=== PATIENT | female | born 1995 | race Caucasian/White ===

== ENCOUNTER 2018-05-21 16:00 | Inpatient (IN) | payer BC, OTHER ==
[2018-05-24] MEDS ORDERED: METHYLERGONOVINE 0.2 MG/ML 1 ML AMP IM PRN (00:36)
[2018-05-24] MEDS ORDERED: TERBUTALINE 1 MG/ML VIAL SQ PRN (00:36)
[2018-05-24] MEDS ORDERED: CARBOPROST TROMETHAMINE 250 MCG/ML 1 ML AMP IM PRN (00:36)
[2018-05-24] MEDS ORDERED: OXYTOCIN 10 UNIT/ML 1 ML VIAL IM PRN (00:36)
[2018-05-24] MEDS ORDERED: LIDOCAINE 1% INJ 10MG/ML (20 ML MDV) SQ PRN (00:36)
[2018-05-24] MEDS: LACTATED RINGERS 1,000 ML IV SCH ×2 (00:37→03:37)
[2018-05-24] MEDS ORDERED: OXYTOCIN 20 UNITS/1000 ML NS 1,000 ML IV SCH ×2 (00:45→09:15)
[2018-05-24] MEDS ORDERED: BUTORPHANOL 1 MG/ML 1 ML VIAL IV PRN (00:53)
[2018-05-24 00:54] LABS: Basophils % (A) 0 %; Eosinophils # (A) 0.1 k/uL (0-0.7); Eosinophils % (A) 1 %; HCT 35.2 % (34.0-46.0); Lymphocytes # (A) 2.4 k/uL (1.0-4.8); Lymphocytes % (A) 26 %; MCV 82.5 fL (80.0-100.0); Mean Platelet Volume 6.7; Monocytes # (A) 0.7 k/uL (0-1.0); Monocytes % (A) 7 %; Neutrophils % (A) 64 %; Platelet Count 241 k/uL (150-450); RBC 4.27 m/uL (3.80-5.40); RDW 13.6 % (11.5-15.5); WBC 9.3 k/uL (3.8-10.6)
[2018-05-24 01:33] VITALS: BMI 30.2
[2018-05-24] MEDS ORDERED: fentaNYL (PF) 50 MCG/ML 5 ML AMP ONE (03:38)
[2018-05-24] MEDS ORDERED: ROPIVACAINE 5MG/ML 20ML VIAL ONE (03:38)
[2018-05-24] MEDS ORDERED: SODIUM CHLORIDE 0.9% 100 ML BAG ONE (03:38)
[2018-05-24] MEDS ORDERED: ROPIVACAINE 100 MG, fentaNYL (PF) 200 MCG in SODIUM CHLORIDE 0.9% 76 ML EPIDURAL ONE (05:44)
[2018-05-24] MEDS ORDERED: diphenhydrAMINE 50 MG CAP PO PRN (09:05)
[2018-05-24] MEDS ORDERED: HYDROCORTISONE 2.5% RECTAL CREAM 30 GM TUBE RECTAL PRN (09:05)
[2018-05-24] MEDS ORDERED: SIMETHICONE 80 MG CHEWABLE PO PRN (09:05)
[2018-05-24] MEDS ORDERED: diphenhydrAMINE 50 MG/ML 1 ML VIAL IVP PRN ×2 (09:05)
[2018-05-24] MEDS ORDERED: ZOLPIDEM 5 MG TAB PO PRN (09:05)
[2018-05-24] MEDS ORDERED: ACETAMINOPHEN TAB 325 MG TAB PO PRN (09:05)
[2018-05-24] MEDS ORDERED: WITCH HAZEL 1 EACH MED..PAD TOPICAL PRN (09:05)
[2018-05-24] MEDS ORDERED: diphenhydrAMINE 25 MG CAP PO PRN (09:05)
[2018-05-24] MEDS ORDERED: LANOLIN CREAM 5 GM TUBE TOPICAL PRN (09:05)
[2018-05-24] MEDS ORDERED: BENZOCAINE/MENTHOL SPRAY 1 GM/SPRAY AEROSOL TOPICAL PRN (09:05)
--- NOTE | 2018-05-24 09:10 | P.HPOB ---
History of Present Illness H&P Date: 05/24/18 Chief Complaint: IUP @ 40 3/7 weeks, SROM This is a 22-year-old 1 para 0 at 40-3/7 weeks with an estimated due date of 05/21. Patient presents to labor and delivery with complaints of spontaneous rupture of membranes around 2330 on 05/23, clear in nature. Patient denied vaginal bleeding and notes good movement. Patient has been receiving routine care with myself since the first trimester. On blood work blood type of AB+, rubella immune, hepatitis B surface antigen negative, HIV negative, RPR nonreactive, GBS negative. Review of Systems Constitutional: Denies chills, Denies fatigue, Denies fever Ears, nose, mouth and throat: Denies headache Cardiovascular: Reports leg edema Respiratory: Denies cough, Denies dyspnea Gastrointestinal: Reports constipation, Denies diarrhea, Denies nausea, Denies vomiting Genitourinary: Reports Past Medical History Past Medical History: No Reported History History of Any Multi-Drug Resistant Organisms: None Reported Past Surgical History: No Surgical Hx Reported Past Anesthesia/Blood Transfusion Reactions: No Reported Reaction Past Psychological History: No Psychological Hx Reported Smoking Status: Never smoker Past Alcohol Use History: None Reported Past Drug Use History: None Reported - Past Family History Mother Family Medical History: No Reported History Medications and Allergies Home Medications Medication Instructions Recorded Confirmed Type Pnv,Calcium 72/Iron/Folic Acid 1 tab PO DAILY 05/24/18 05/24/18 History [ Plus Tablet] Allergies Allergy/AdvReac Type Severity Reaction Status Date / Time No Known Allergies Allergy Verified 05/24/18 00:35 Exam Osteopathic Statement: *. No significant issues noted on an osteopathic structural exam other than those noted in the History and Physical/Consult. Vital Signs Temp Pulse Resp BP 05/24/18 00:35 97.8 F 88 16 129/88 Intake and Output 05/23/18 05/24/18 05/24/18 22:59 06:59 14:59 Intake Total 2200 Balance 2200 Intake: IV 1600 Lactated Ringers 1,000 ml 1600 @ 125 mls/hr IV .Q8H TOM Rx#:[id number] Oral 600 Other: # Voids 5 Weight 74.843 kg Targeted physical exam was performed on this date in general this is a well- nourished well-developed female in no acute distress. Heart is Regular rate and rhythm, lungs are clear to auscultation bilaterally abdomen is noted to be gravid and appropriate for gestational age. heart tones were noted to be reassuring and she is victor manuel every 3 minutes. Results Result Diagrams: 05/24/18 00:42 Assessment and Plan (1) Term Current Visit: Yes Status: Acute Code(s): Z34.80 - ENCOUNTER FOR SUPRVSN OF NORMAL , UNSP TRIMESTER SNOMED Code(s): 94421447 (2) SROM (spontaneous rupture of membranes) Current Visit: Yes Status: Acute Code(s): OEW2307 - SNOMED Code(s): 770294722 Plan: Patient was admitted overnight for spontaneous rupture of membranes Pitocin augmentation of labor was begun by Dr. Zuniga. Anticipate spontaneous vaginal delivery later this morning.
--- NOTE | 2018-05-24 09:12 | P.PROBDLV ---
Vaginal Delivery Note - . Vaginal Delivery Note: This 22-year-old 1 para 0 presented to labor and delivery with complaints of spontaneous rupture of membranes. Fluid was noted to be clear in nature and patient was GBS negative. Patient was started on Pitocin augmentation of labor early this morning, eventually becoming uncomfortable and requesting an epidural. Patient had an epidural placed by anesthesia without difficulty. Patient progressed to complete began pushing and had a normal spontaneous vaginal delivery of a viable female infant at 847, weight of 7 lbs. 12 oz. with Apgars of 9 and 9 at one and 5 minutes respectively. Afterwards the umbilical cord was doubly clamped and cut after a 2 minute delay in the placenta was delivered spontaneously intact with a three-vessel cord being noted. On inspection the patient's vaginal vault a first-degree vaginal laceration was noted this was repaired in the usual fashion with 3-0 Rapide. Hemostasis was appreciated. The vaginal vault was inspected no further lacerations were noted. Estimated blood loss 300 mL, mother and tolerated delivery well and are resting comfortably.
[2018-05-24] MEDS: IBUPROFEN 600 MG TAB PO PRN (18:11)
[2018-05-24] MEDS ORDERED: SENNOSIDES-DOCUSATE SODIUM 1 EACH TAB PO SCH (20:00)
[2018-05-24 20:47] VITALS: PULSE 81
[2018-05-25] MEDS: IBUPROFEN 600 MG TAB PO PRN (08:07)
--- NOTE | 2018-05-25 08:13 | P.DS ---
Providers Date of admission: 05/24/18 00:26 Expected date of discharge: 05/25/18 Attending physician: Rebeca Davenport Primary care physician: Quynh Proctor - Discharge Diagnosis(es) (1) Term Current Visit: Yes Status: Acute (2) SROM (spontaneous rupture of membranes) Current Visit: Yes Status: Acute (3) Status post vaginal delivery Current Visit: Yes Status: Acute Hospital Course: This is a very pleasant 22-year-old 1 para 0 at 40-3/7 weeks presented to labor and delivery yesterday with complaints of spontaneous rupture of membranes clear in nature. Patient made slow progress Pitocin augmentation was begun and patient progressed to complete and had a normal spontaneous vaginal delivery of a viable female infant at 847, weight of 7 lbs. 12 oz., Apgars of 9 and 9 at one and 5 minutes respectively. Afterwards there was a first 3 vaginal laceration that was noted and it was repaired in the usual fashion. Patient's course has been uneventful. On this day #1 she is ambulating and voiding without difficulty. She is tolerating a regular diet without nausea or vomiting. She denies concerns states her pain is well- controlled and wishes to be discharged home at 24 hours. She states she is bottle feeding. Patient Condition at Discharge: Good Plan - Discharge Summary New Discharge Prescriptions: No Action Pnv,Calcium 72/Iron/Folic Acid [ Plus Tablet] 1 tab PO DAILY Discharge Medication List Pnv,Calcium 72/Iron/Folic Acid [ Plus Tablet] 1 tab PO DAILY 05/24/18 [ History] Follow up Appointment(s)/Referral(s): Rebeca Davenport DO [Doctor of Osteopathic Medicine] - 4 Weeks Patient Instructions/Handouts: Vaginal Delivery (DC), Vaginal Delivery (GEN) Discharge Disposition: HOME SELF-CARE
[2018-05-25 08:52] VITALS: BP 120/72; RESP 15; TEMP 98.3
[2018-05-25] MEDS ORDERED: PRENATAL VIT-IRON-FOLIC ACID 1 EACH CAP PO SCH (12:00)
[2018-05-25 12:47] LABS: Basophils % (A) 0 %; Eosinophils # (A) 0.1 k/uL (0-0.7); Eosinophils % (A) 1 %; HCT 34.4 % (34.0-46.0); HGB 11.5 gm/dL (11.4-16.0); Lymphocytes # (A) 1.7 k/uL (1.0-4.8); Lymphocytes % (A) 14 %; MCH 28.2 pg (25.0-35.0); MCHC 33.5 g/dL (31.0-37.0); MCV 84.4 fL (80.0-100.0); Mean Platelet Volume 6.6; Monocytes # (A) 0.4 k/uL (0-1.0); Monocytes % (A) 3 %; Neutrophils # (A) 9.5 k/uL (1.3-7.7); Neutrophils % (A) 81 %; Platelet Count 221 k/uL (150-450); RBC 4.07 m/uL (3.80-5.40); RDW 13.7 % (11.5-15.5); WBC 11.8 k/uL (3.8-10.6)
== END 2018-05-25 14:00 | disposition home or self-care (01) | DRG 807 ==
LOC: 4FBP 05-24 00:26
PROVIDERS: ADMIT Obstetrics & Gynecology; ATTEND Obstetrics & Gynecology Obstetrics
PROC: 10E0XZZ Delivery of Products of Conception, External Approach (ICD-10-PCS; principal; 2018-05-24)
PROC: 0HQ9XZZ Repair Perineum Skin, External Approach (ICD-10-PCS; principal; 2018-05-24)
PROC: 3E0R3NZ Introduction of Analgesics, Hypnotics, Sedatives into Spinal Canal, Percutaneous Approach (ICD-10-PCS; principal; 2018-05-24)
PROC: 00HU33Z Insertion of Infusion Device into Spinal Canal, Percutaneous Approach (ICD-10-PCS; principal; 2018-05-24)
DX: O70.0 First degree perineal laceration during delivery (principal); Z37.0 Single live birth; Z3A.40 40 weeks gestation of pregnancy
CPT/HCPCS: 85025; 86850; 86900; 86901

== ENCOUNTER 2020-07-11 05:58 | Inpatient (IN) | payer OTHER ==
[2020-07-11] MEDS ORDERED: METHYLERGONOVINE 0.2 MG/ML 1 ML AMP IM PRN (06:17)
[2020-07-11] MEDS ORDERED: OXYTOCIN 10 UNIT/ML 1 ML VIAL IM PRN (06:17)
[2020-07-11] MEDS ORDERED: LIDOCAINE 0.5% (PF) 5 MG/ML (50 ML SDV) SQ PRN (06:17)
[2020-07-11] MEDS ORDERED: TERBUTALINE 1 MG/ML VIAL SQ PRN (06:17)
[2020-07-11] MEDS ORDERED: CARBOPROST TROMETHAMINE 250 MCG/ML 1 ML AMP IM PRN (06:17)
[2020-07-11] MEDS: LACTATED RINGERS 1,000 ML IV SCH ×2 (06:21→09:09)
[2020-07-11] MEDS ORDERED: OXYTOCIN 30 UNITS/500 ML NS 30 UNIT in SALINE 1 500ML.BAG IV SCH ×2 (06:30→13:00)
[2020-07-11 06:49] LABS: Basophils % (A) 0 %; Eosinophils # (A) 0.1 k/uL (0-0.7); Eosinophils % (A) 1 %; HCT 33.3 % (34.0-46.0); HGB 10.9 gm/dL (11.4-16.0); Hypochromasia Moderate; Lymphocytes # (A) 2.3 k/uL (1.0-4.8); Lymphocytes % (A) 24 %; MCH 24.3 pg (25.0-35.0); MCHC 32.6 g/dL (31.0-37.0); MCV 74.8 fL (80.0-100.0); Mean Platelet Volume 7.4; Microcytosis Slight; Monocytes # (A) 0.6 k/uL (0-1.0); Monocytes % (A) 6 %; Neutrophils # (A) 6.4 k/uL (1.3-7.7); Neutrophils % (A) 68 %; Platelet Count 273 k/uL (150-450); Poikilocytosis Slight; RBC 4.46 m/uL (3.80-5.40); RDW 13.7 % (11.5-15.5); WBC 9.5 k/uL (3.8-10.6)
[2020-07-11] MEDS ORDERED: fentaNYL (PF) 50 MCG/ML 5 ML AMP ONE (08:51)
[2020-07-11] MEDS ORDERED: ROPIVACAINE 5MG/ML 20ML VIAL ONE (08:51)
[2020-07-11] MEDS ORDERED: SODIUM CHLORIDE 0.9% 100 ML BAG ONE (08:51)
--- NOTE | 2020-07-11 12:52 | P.HPOB ---
History of Present Illness H&P Date: 07/11/20 Chief Complaint: IUP @ 39 2/7 weeks This is a 24-year-old at 39-2/7 weeks that presents to labor and delivery for elective induction of labor. Patient was noted to be 4+ centimeters in the office yesterday. Patient began experiencing irregular contractions. Patient denies loss of fluid or vaginal bleeding this morning. She denies contractions. Patient has been receiving routine care which has been essentially uncomplicated. On bloodwork patient has a blood type of AB+, rubella status immune, hepatitis B surface antigen negative, HIV negative, RPR nonreactive, GBS negative. Review of Systems Constitutional: Denies chills, Denies fatigue, Denies fever Ears, nose, mouth and throat: Denies headache Cardiovascular: Reports leg edema Respiratory: Denies dyspnea Gastrointestinal: Denies constipation, Denies diarrhea, Denies nausea Genitourinary: Reports Past Medical History Past Medical History: No Reported History History of Any Multi-Drug Resistant Organisms: None Reported Past Surgical History: No Surgical Hx Reported Past Anesthesia/Blood Transfusion Reactions: No Reported Reaction Past Psychological History: No Psychological Hx Reported Smoking Status: Never smoker Past Alcohol Use History: None Reported Past Drug Use History: None Reported - Past Family History Mother Family Medical History: No Reported History Medications and Allergies Home Medications Medication Instructions Recorded Confirmed Type Pnv,Calcium 72/Iron/Folic Acid 1 tab PO DAILY 05/24/18 07/11/20 History [ Plus Tablet] Allergies Allergy/AdvReac Type Severity Reaction Status Date / Time No Known Allergies Allergy Verified 05/24/18 00:35 Exam Osteopathic Statement: *. No significant issues noted on an osteopathic structural exam other than those noted in the History and Physical/Consult. Vital Signs Temp Pulse Resp BP Pulse Ox 07/11/20 06:15 97.5 F L 84 16 119/68 100 Intake and Output 07/10/20 07/11/20 07/11/20 22:59 06:59 14:59 Other: Weight 80.286 kg Targeted physical exam is performed in this date and manager wind a well-nourished well-developed female in no acute distress, breathing is noted to be nonlabored, heart has a regular rhythm, abdomen is gravid and appropriate for gestational age. On cervical exam she is 45/90/-2 station, amniotomy is performed and clear fluid was obtained. heart tones are be category 1 and she is victor manuel every 3 minutes. Results Result Diagrams: 07/11/20 06:20 Abnormal Lab Results - Last 24 Hours (Table) 07/11/20 Range/Units 06:20 Hgb 10.9 L (11.4-16.0) gm/dL Hct 33.3 L (34.0-46.0) % MCV 74.8 L (80.0-100.0) fL MCH 24.3 L (25.0-35.0) pg Assessment and Plan (1) Term Current Visit: No Status: Acute Code(s): Z34.80 - ENCOUNTER FOR SUPRVSN OF NORMAL , UNSP TRIMESTER SNOMED Code(s): 63369116 Plan: Patient is admitted to labor and delivery for Pitocin induction of labor. Pitocin is begun per hospital protocol. Epidural versus Stadol is discussed for analgesia during labor. Patient states understanding and will let us know when she is ready for either. Anticipate spontaneous vaginal delivery later today.
[2020-07-11] MEDS ORDERED: HYDROcodone/APAP 5-325MG 1 EACH TAB PO PRN (12:57)
[2020-07-11] MEDS ORDERED: BENZOCAINE/MENTHOL SPRAY 1 GM/SPRAY AEROSOL TOPICAL PRN (12:57)
[2020-07-11] MEDS ORDERED: diphenhydrAMINE 50 MG/ML 1 ML VIAL IVP PRN ×2 (12:57)
[2020-07-11] MEDS ORDERED: ACETAMINOPHEN TAB 325 MG TAB PO PRN (12:57)
[2020-07-11] MEDS ORDERED: LANOLIN CREAM 5 GM TUBE TOPICAL PRN (12:57)
[2020-07-11] MEDS ORDERED: HYDROCORTISONE 2.5% RECTAL CREAM 30 GM TUBE RECTAL PRN (12:57)
[2020-07-11] MEDS ORDERED: diphenhydrAMINE 50 MG CAP PO PRN (12:57)
[2020-07-11] MEDS ORDERED: ZOLPIDEM 5 MG TAB PO PRN (12:57)
[2020-07-11] MEDS ORDERED: diphenhydrAMINE 25 MG CAP PO PRN (12:57)
[2020-07-11] MEDS ORDERED: SIMETHICONE 80 MG CHEWABLE PO PRN (12:57)
--- NOTE | 2020-07-11 12:57 | P.PROBDLV ---
Vaginal Delivery Note - . Vaginal Delivery Note: This is a 24-year-old 001 that presented to labor and delivery at 39-2/7 weeks for elective induction of labor. Patient been receiving routine care which has been essentially uncomplicated. Patient was admitted and Pitocin induction of labor was begun per hospital protocol. Amniotomy was performed and clear fluid was obtained. Patient progressed to around 5 cm was uncomfortable and requested epidural placement. Epidural was placed without difficulty. Patient subsequently progressed to complete and began pushing. Delivery of the head was completed without difficulty, a mild shoulder dystocia was noted, this was reduced with Elicia, and subsequently suprapubic pressure. Minimal time 15-20 seconds was noted in between delivery of head and delivery of the infant. After a two-minute delayed the umbilical cords doubly clamped and cut. Spontaneous cry was noted at . The placenta was then delivered spontaneously intact with three-vessel cord being noted. Uterus is noted to be firm and below the umbilicus at that time. A first-degree laceration was noted vaginally this was repaired with a [id number] suture of 3-0 Rapide. The bladder was then drained for 200 mL of clear yellow urine. Viable male infant delivered at 1231, 9 lbs. 5 oz. with Apgars of 9 and 9 at one and 5 minutes respectively. Clavicles were examined by 2 separate nurses felt to be intact, normal strength and inspector grain mill products noted bilaterally. All counts are correct 2 within the procedure, patient and tolerated delivery well.
[2020-07-11] MEDS: IBUPROFEN 600 MG TAB PO PRN ×2 (14:25→19:56)
[2020-07-11] MEDS: SENNOSIDES-DOCUSATE SODIUM 1 EACH TAB PO SCH (19:57)
[2020-07-12] MEDS: IBUPROFEN 600 MG TAB PO PRN ×2 (01:39→07:23)
[2020-07-12] MEDS: SENNOSIDES-DOCUSATE SODIUM 1 EACH TAB PO SCH (07:24)
[2020-07-12 07:58] VITALS: BP 120/76; PULSE 74; RESP 16; TEMP 98.5
--- NOTE | 2020-07-12 08:37 | P.DS ---
Providers Date of admission: 07/11/20 05:58 Expected date of discharge: 07/12/20 Attending physician: Rebeca Davenport Primary care physician: Stated None - Discharge Diagnosis(es) (1) Term Current Visit: No Status: Acute (2) Status post vaginal delivery Current Visit: No Status: Acute Hospital Course: This is a 24-year-old that presented to labor and delivery at 39-2/7 weeks for elective induction of labor. Patient had been receiving routine care which has been essentially uncomplicated. Patient was admitted to labor and delivery and Pitocin induction of labor was begun per hospital protocol. Anatomy was performed and clear fluid was obtained. Patient progressed to 5 cm becoming uncomfortable and requesting epidural placement. Epidural was placed without difficulty by the anesthesia department. Patient progressed to complete began pushing and had a normal spontaneous vaginal delivery of a viable male infant at 1231, weight of 9 lbs. 5 oz. with Apgars of 9 and 9 at one and 5 minutes respectively. Patient did have a mild shoulder dystocia which was reduced with Elicia and suprapubic pressure. Delivery was discussed with patient and significant other in detail. Questions were answered at that time and upon the delivery. Clavicles were examined by 2 separate nurses strength was felt to be intact bilaterally along with motion picture printer strength Patient's course has been uneventful. On this day #1 she is ambula ting and voiding without difficulty. She is tolerating a regular diet without nausea or vomiting. She states her lochia is moderate. She is bottle feeding. She does desire discharge home at 24 hours if possible. Patient Condition at Discharge: Good Plan - Discharge Summary New Discharge Prescriptions: No Action Pnv,Calcium 72/Iron/Folic Acid [ Plus Tablet] 1 tab PO DAILY Discharge Medication List Pnv,Calcium 72/Iron/Folic Acid [ Plus Tablet] 1 tab PO DAILY 05/24/18 [History] Follow up Appointment(s)/Referral(s): Rebeca Davenport DO [Doctor of Osteopathic Medicine] - 4 Weeks Patient Instructions/Handouts: Vaginal Delivery (GEN), Vaginal Delivery (DC) Discharge Disposition: HOME SELF-CARE
[2020-07-12] MEDS ORDERED: PRENATAL VIT-IRON-FOLIC ACID 1 EACH CAP PO SCH (09:00)
== END 2020-07-12 13:20 | disposition home or self-care (01) | DRG 807 ==
LOC: 4FBP 05:58
PROVIDERS: ADMIT Obstetrics & Gynecology Obstetrics; ATTEND Obstetrics & Gynecology Obstetrics
PROC: 10E0XZZ Delivery of Products of Conception, External Approach (ICD-10-PCS; principal; 2020-07-11)
PROC: 10907ZC Drainage of Amniotic Fluid, Therapeutic from Products of Conception, Via Natural or Artificial Opening (ICD-10-PCS; 2020-07-11)
PROC: 3E033VJ Introduction of Other Hormone into Peripheral Vein, Percutaneous Approach (ICD-10-PCS; 2020-07-11)
PROC: 3E0R3BZ Introduction of Anesthetic Agent into Spinal Canal, Percutaneous Approach (ICD-10-PCS; 2020-07-11)
PROC: 0HQ9XZZ Repair Perineum Skin, External Approach (ICD-10-PCS; 2020-07-11)
DX: O66.0 Obstructed labor due to shoulder dystocia (principal); Z37.0 Single live birth; O70.0 First degree perineal laceration during delivery; Z3A.39 39 weeks gestation of pregnancy; Z79.899 Other long term (current) drug therapy
CPT/HCPCS: 85025; 86850; 86900; 86901

== ENCOUNTER 2021-09-13 13:18 | Emergency (ER) | payer OTHER ==
[2021-09-13 13:23] VITALS: TEMP 98.6
--- NOTE | 2021-09-13 14:06 | ED ---
General Adult HPI - General Chief complaint: Neuro Symptoms/Deficit Stated complaint: Left arm/face tingling Time Seen by Provider: 09/13/21 14:05 Source: patient Mode of arrival: ambulatory Limitations: no limitations - History of Present Illness Initial comments: Patient presents to the ED stating that she was diagnosed with hyperthyroidism last fall, and she states that she never got the thyroid medication filled that she was prescribed at that time. Patient states that she has had intermittent left arm and bilateral facial "tingling" since about 2300 last night. Patient denies having any tingling or sensory deficits currently. Patient states that she is just "scared" that these symptoms may be related to her thyroid disease. Patient states that she has an appointment scheduled to see her PCP this Thursday, but she did not want to wait until then to be evaluated, so she has come to the ED today. Patient denies having any pain, fever or chills, headache, focal weakness, visual changes, speech difficulty, dizziness, neck/back/extremity pain, chest pain, dyspnea, cough or cold symptoms, palpitations, abdominal pain, nausea/vomiting/diarrhea, dysuria or urinary symptoms, or any other symptoms or complaints. - Related Data Home Medications Medication Instructions Recorded Confirmed No Known Home Medications 09/13/21 09/13/21 Allergies Allergy/AdvReac Type Severity Reaction Status Date / Time No Known Allergies Allergy Verified 09/13/21 15:15 Review of Systems ROS Statement: Those systems with pertinent positive or pertinent negative responses have been documented in the HPI. ROS Other: All systems not noted in ROS Statement are negative. Past Medical History Past Medical History: No Reported History History of Any Multi-Drug Resistant Organisms: None Reported Past Surgical History: No Surgical Hx Reported Past Anesthesia/Blood Transfusion Reactions: No Reported Reaction Past Psychological History: No Psychological Hx Reported Smoking Status: Never smoker Past Alcohol Use History: None Reported Past Drug Use History: None Reported - Past Family History Mother Family Medical History: No Reported History General Exam Limitations: no limitations General appearance: alert, in no apparent distress Head exam: Present: atraumatic, normocephalic Eye exam: Present: normal appearance, PERRL, EOMI ENT exam: Present: mucous membranes moist Neck exam: Present: other (Trachea is in midline). Absent: tenderness Respiratory exam: Present: normal lung sounds bilaterally. Absent: respiratory distress, wheezes, rales, rhonchi, stridor Cardiovascular Exam: Present: regular rate, normal rhythm, normal heart sounds, other (Normal radial pulses bilaterally) GI/Abdominal exam: Present: soft. Absent: distended, tenderness, guarding Extremities exam: Present: full ROM. Absent: tenderness, pedal edema Back exam: Absent: tenderness Neurological exam: Present: alert, oriented X3, CN II-XII intact, other (NIH stroke scale score = 0). Absent: motor sensory deficit Psychiatric exam: Present: normal affect, normal mood Skin exam: Present: warm, dry, intact, normal color Course Vital Signs 09/13/21 09/13/21 13:19 16:05 Temperature 98.6 F Pulse Rate 97 93 Respiratory 18 16 Rate Blood Pressure 130/72 117/77 O2 Sat by Pulse 100 100 Oximetry - Reevaluation(s) Reevaluation #1: 09/13/21 17:06 Patient continues to deny having any tingling while in the ED. Patient continues to have a normal neurological exam in the ED. Patient remains alert and breathing comfortably. Patient and sister are aware of the patient's test results, and patient feels comfortable being discharged home at this time. Patient agrees to follow up with her primary care provider this Thursday as scheduled. Patient was counseled about paresthesias, and she was clearly explained return and follow-up instructions. Patient was instructed to have a low threshold for return to the emergency department should her symptoms worsen. Patient feels comfortable with this plan. EKG Findings - EKG Comments: EKG Findings:: Normal sinus rhythm, ventricular rate of 81 bpm, no ectopy, normal PA and QRS intervals, normal QT interval, normal axis, no ST or T-wave abnormality Medical Decision Making - Medical Decision Making Patient continues to have a normal neurological exam in the ED. Patient's TSH is only minimally elevated in the ED, but her T3 and T4 levels are within normal limits. The rest of the patient's labs are fairly unremarkable, as are the patient's imaging studies. I do not think that the patient's symptoms are from an emergent medical condition. Will discharge patient home at this time with instructions to follow up with her primary care provider this Thursday as scheduled. Patient feels comfortable with this plan. - Lab Data Result diagrams: 09/13/21 14:41 09/13/21 14:41 Lab Results 09/13/21 09/13/21 09/13/21 Range/Units 14:41 14:41 14:41 WBC 6.8 (3.8-10.6) k/uL RBC 5.42 H (3.80-5.40) m/uL Hgb 15.0 (11.4-16.0) gm/dL Hct 43.9 (34.0-46.0) % MCV 80.9 (80.0-100.0) fL MCH 27.6 (25.0-35.0) pg MCHC 34.1 (31.0-37.0) g/dL RDW 13.3 (11.5-15.5) % Plt Count 223 (150-450) k/uL MPV 6.9 Neutrophils % 75 % Lymphocytes % 20 % Monocytes % 4 % Eosinophils % 1 % Basophils % 0 % Neutrophils # 5.1 (1.3-7.7) k/uL Lymphocytes # 1.3 (1.0-4.8) k/uL Monocytes # 0.3 (0-1.0) k/uL Eosinophils # 0.1 (0-0.7) k/uL Basophils # 0.0 (0-0.2) k/uL PT 11.1 (9.0-12.0) sec INR 1.0 (<1.2) APTT 25.5 (22.0-30.0) sec Sodium 141 (137-145) mmol/L Potassium 3.8 (3.5-5.1) mmol/L Chloride 103 (98-107) mmol/L Carbon Dioxide 25 (22-30) mmol/L Anion Gap 13 mmol/L BUN 13 (7-17) mg/dL Creatinine 0.93 (0.52-1.04) mg/dL Est GFR (CKD-EPI)AfAm >90 (>60 ml/min/1.73 sqM) Est GFR (CKD-EPI)NonAf 85 (>60 ml/min/1.73 sqM) Glucose 100 H (74-99) mg/dL Calcium 9.9 (8.4-10.2) mg/dL Total Bilirubin 0.8 (0.2-1.3) mg/dL AST 22 (14-36) U/L ALT 10 (4-34) U/L Alkaline Phosphatase 74 (38-126) U/L Troponin I (0.000-0.034) ng/mL Total Protein 8.9 H (6.3-8.2) g/dL Albumin 5.2 H (3.5-5.0) g/dL TSH 4.750 H (0.465-4.680) mIU/L Free T4 1.30 (0.78-2.19) ng/dL Free T3 pg/mL 4.4 (2.8-5.3) pg/ml HCG, Qual Not Detected 09/13/21 Range/Units 14:41 WBC (3.8-10.6) k/uL RBC (3.80-5.40) m/uL Hgb (11.4-16.0) gm/dL Hct (34.0-46.0) % MCV (80.0-100.0) fL MCH (25.0-35.0) pg MCHC (31.0-37.0) g/dL RDW (11.5-15.5) % Plt Count (150-450) k/uL MPV Neutrophils % % Lymphocytes % % Monocytes % % Eosinophils % % Basophils % % Neutrophils # (1.3-7.7) k/uL Lymphocytes # (1.0-4.8) k/uL Monocytes # (0-1.0) k/uL Eosinophils # (0-0.7) k/uL Basophils # (0-0.2) k/uL PT (9.0-12.0) sec INR (<1.2) APTT (22.0-30.0) sec Sodium (137-145) mmol/L Potassium (3.5-5.1) mmol/L Chloride (98-107) mmol/L Carbon Dioxide (22-30) mmol/L Anion Gap mmol/L BUN (7-17) mg/dL Creatinine (0.52-1.04) mg/dL Est GFR (CKD-EPI)AfAm (>60 ml/min/1.73 sqM) Est GFR (CKD-EPI)NonAf (>60 ml/min/1.73 sqM) Glucose (74-99) mg/dL Calcium (8.4-10.2) mg/dL Total Bilirubin (0.2-1.3) mg/dL AST (14-36) U/L ALT (4-34) U/L Alkaline Phosphatase (38-126) U/L Troponin I <0.012 (0.000-0.034) ng/mL Total Protein (6.3-8.2) g/dL Albumin (3.5-5.0) g/dL TSH (0.465-4.680) mIU/L Free T4 (0.78-2.19) ng/dL Free T3 pg/mL (2.8-5.3) pg/ml HCG, Qual - Radiology Data Chest x-ray: No acute process. Noncontrast head CT: Unremarkable study. Disposition Clinical Impression: Paresthesias Disposition: HOME SELF-CARE Condition: Stable Instructions (If sedation given, give patient instructions): Paresthesia (ED) Additional Instructions: Return to the ER immediately should you develop new or worsening tingling, weakness, trouble with your vision or speech, any significant pain, shortness of breath, feeling dizzy or faint, or new or worsening symptoms. Follow up with your primary care provider this Thursday as scheduled. Is patient prescribed a controlled substance at d/c from ED?: No Referrals: Lee Ann Uriostegui MD [Primary Care Provider] - 1-2 days Time of Disposition: 17:07
[2021-09-13 14:53] LABS: Basophils % (A) 0 %; Eosinophils # (A) 0.1 k/uL (0-0.7); Eosinophils % (A) 1 %; HCT 43.9 % (34.0-46.0); Lymphocytes # (A) 1.3 k/uL (1.0-4.8); Lymphocytes % (A) 20 %; MCH 27.6 pg (25.0-35.0); MCHC 34.1 g/dL (31.0-37.0); MCV 80.9 fL (80.0-100.0); Mean Platelet Volume 6.9; Monocytes # (A) 0.3 k/uL (0-1.0); Monocytes % (A) 4 %; Neutrophils # (A) 5.1 k/uL (1.3-7.7); Neutrophils % (A) 75 %; Platelet Count 223 k/uL (150-450); RBC 5.42 m/uL (3.80-5.40); RDW 13.3 % (11.5-15.5); WBC 6.8 k/uL (3.8-10.6)
--- NOTE | 2021-09-13 15:03 | CT ---
EXAMINATION TYPE: CT brain wo con DATE OF EXAM: 09/13/2021 COMPARISON: None. HISTORY: LT face and LT arm tingling/numbness. CT DLP: 1088.4 mGycm. Automated Exposure Control for Dose Reduction was Utilized. TECHNIQUE: CT scan of the head is performed without contrast. FINDINGS: There is no acute intracranial hemorrhage, mass effect, or midline shift identified. The ventricles and sulci are within normal limits in size. Jaffe-white matter differentiation is maintain ed. The globes are intact and the visualized sinuses are clear. IMPRESSION: Unremarkable study.
[2021-09-13 15:04] LABS: ALT 10 U/L (4-34); AST 22 U/L (14-36); African American GFR (CKD) >90 (>60 ml/min/1.73 sqM); Albumin 5.2 g/dL (3.5-5.0); Alkaline Phosphatase 74 U/L (38-126); Anion Gap 13 mmol/L; Blood Urea Nitrogen 13 mg/dL (7-17); Calcium 9.9 mg/dL (8.4-10.2); Carbon Dioxide 25 mmol/L (22-30); Chloride 103 mmol/L (98-107); Glucose 100 mg/dL (74-99); HCG,Qualitative Serum Not Detected; Non-African American GFR(CKD) 85 (>60 ml/min/1.73 sqM); Potassium 3.8 mmol/L (3.5-5.1); Sodium 141 mmol/L (137-145); Total Bilirubin 0.8 mg/dL (0.2-1.3); Total Protein 8.9 g/dL (6.3-8.2)
--- NOTE | 2021-09-13 15:08 | XR ---
EXAMINATION TYPE: XR chest 2V DATE OF EXAM: 09/13/2021 COMPARISON: NONE TECHNIQUE: PA and lateral views submitted. HISTORY: Pain FINDINGS: The lungs are clear and there is no pneumothorax, pleural effusion, or focal pneumonia. Heart size normal. No overt failure. Hyperinflation noted. IMPRESSION: 1. No acute process.
[2021-09-13 15:11] LABS: Partial Thromboplastin Time 25.5 sec (22.0-30.0); Prothrombin Time 11.1 sec (9.0-12.0)
[2021-09-13 17:21] VITALS: BP 112/72; PULSE 82; RESP 18
== END 2021-09-13 17:22 | disposition home or self-care (01) ==
LOC: EC 13:18
DX: R20.2 Paresthesia of skin (principal)
CPT/HCPCS: 36415; 70450; 71046; 80053; 84439; 84443; 84481; 84484; 84703; 85025; 85610; 85730; 93005; 99284

== ENCOUNTER 2024-01-28 05:45 | Inpatient (IN) | payer OTHER | END 2024-01-29 13:30 | disposition home or self-care (01) | DRG 560 | LOC: 4FBP 05:45 → UNDOADMIN 05:45 → UNDODISIN 01-29 13:30 → 4FBP 02-12 19:47 → UNDOADMIN 02-12 19:47 | PROVIDERS: ADMIT Obstetrics & Gynecology Obstetrics; ATTEND Obstetrics & Gynecology Obstetrics | PROC: 10E0XZZ Delivery of Products of Conception, External Approach (ICD-10-PCS; principal; 2024-01-28) | PROC: 0HQ9XZZ Repair Perineum Skin, External Approach (ICD-10-PCS; 2024-01-28) | PROC: 3E033VJ Introduction of Other Hormone into Peripheral Vein, Percutaneous Approach (ICD-10-PCS; 2024-01-28) | DX: O66.0 Obstructed labor due to shoulder dystocia (principal); Z37.0 Single live birth; O70.0 First degree perineal laceration during delivery; Z3A.39 39 weeks gestation of pregnancy ==